=== PATIENT | male | born 2000 | race Caucasian/White ===

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

== ENCOUNTER 2024-06-26 20:29 | Emergency (ER) | payer BC ==
[2024-06-27] MEDS: Lidocaine 1% 10 ML MDV INJECT ONE (01:21)
[2024-06-27 02:01] VITALS: BP 134/76; PULSE 80
== END 2024-06-27 02:00 | disposition home or self-care (01) ==
LOC: MW.ED 20:29
DX: S61.217A Laceration without foreign body of left little finger without damage to nail, initial encounter (principal); W26.0XXA Contact with knife, initial encounter
CPT/HCPCS: 12001; 99283; J3490